=== PATIENT | male | born 1970 | race Caucasian/White ===

== ENCOUNTER → 2018-10-18 | Outpatient (CLI) | payer BC ==
[~2018-10-18] MED LIST: BUPIVACAINE 0.25% 30 ML SDV ONE; DEPO METHYLPREDNISOLONE 40 MG/ML SDV ONE; LIDOCAINE 1% 300 MG/30 ML SDV ONE
== END ==
LOC: FIMAGING 10:08
PROVIDERS: ATTEND Orthopaedic Surgery
PROC: 3E023GC Introduction of Other Therapeutic Substance into Muscle, Percutaneous Approach (ICD-10-PCS; principal; 2018-10-18)
PROC: 0R9 Upper Joints, Drainage (ICD-10-PCS; principal; 2018-10-18)
DX: M75.32 Calcific tendinitis of left shoulder (principal)
CPT/HCPCS: J1030